=== PATIENT | female | born 1960 | race Caucasian/White ===

== ENCOUNTER → 2023-10-18 13:31 | Outpatient (REF) | payer MEDICARE, OTHER, SELFPAY | LOC: HWRAD 13:31 | PROVIDERS: ATTENDING PHYSICIAN Internal Medicine; REFERRING PHYSICIAN Internal Medicine Rheumatology | DX: M85.89 Other specified disorders of bone density and structure, multiple sites (principal); S92.355K Nondisplaced fracture of fifth metatarsal bone, left foot, subsequent encounter for fracture with nonunion; Z79.52 Long term (current) use of systemic steroids | CPT/HCPCS: 77080 ==

== ENCOUNTER 2024-06-06 06:21 | Day surgery (SDC) | payer MEDICARE, OTHER, SELFPAY ==
[2024-06-06] VITALS (7 sets, daily range): BP systolic 16–124; BP diastolic 54–63; BMI 31.2
[2024-06-06] MEDS: CELEBREX 200 MG PO (14:26)
[2024-06-06] MEDS: TYLENOL 1000 MG PO (14:26)
[2024-06-06 14:33] LABS: Hemoglobin 11.9 g/dL (12.0-16.0)
[2024-06-06] MEDS: NORMOSOL-R/PLASMALYTE-A 1000 IV (14:34)
[2024-06-06 15:02] LABS: Blood Urea Nitrogen 15 mg/dl (7-17)
[2024-06-06 15:02] LABS: Estimated Creatinine Clearance 78 ml/min; Glucose 85 mg/dl (70-99)
--- NOTE | 2024-06-06 15:03 | PTCARENOTE ---
Dr. Torres changed Vancomycin to Ancef. Dr. Albrecht notified via tiger text. Will monitor patient.
== END 2024-06-06 18:20 | disposition home or self-care (01) ==
LOC: SDS 06:21
PROVIDERS: ATTENDING PHYSICIAN Student in an Organized Health Care Education/Training Program
DX: S92.352K Displaced fracture of fifth metatarsal bone, left foot, subsequent encounter for fracture with nonunion (principal); S92.512K Displaced fracture of proximal phalanx of left lesser toe(s), subsequent encounter for fracture with nonunion; X58.XXXD Exposure to other specified factors, subsequent encounter; M20.42 Other hammer toe(s) (acquired), left foot
CPT/HCPCS: 28322; 28285; 26546; 82565; 82947; 84520; 85018; 93005; C1713; C1776

== ENCOUNTER → 2024-08-23 14:52 | Outpatient (REF) | payer MEDICARE, OTHER, SELFPAY | LOC: HWRAD 14:52 | PROVIDERS: ATTENDING PHYSICIAN Physician Assistant | DX: R05.1 Acute cough (principal); Z95.2 Presence of prosthetic heart valve; I27.20 Pulmonary hypertension, unspecified | CPT/HCPCS: 71046 ==

== ENCOUNTER → 2024-09-19 15:03 | Outpatient (REF) | payer MEDICARE, OTHER, SELFPAY | LOC: HWRAD 15:03 | PROVIDERS: ATTENDING PHYSICIAN Physician Assistant; REFERRING PHYSICIAN Internal Medicine Pulmonary Disease | DX: J18.9 Pneumonia, unspecified organism (principal) | CPT/HCPCS: 71046 ==

== ENCOUNTER → 2024-12-20 14:29 | Outpatient (REF) | payer MEDICARE, OTHER, SELFPAY | LOC: HWRAD 14:29 | PROVIDERS: ATTENDING PHYSICIAN Internal Medicine Rheumatology; FAMILY PHYSICIAN Internal Medicine | DX: R94.5 Abnormal results of liver function studies (principal); R10.11 Right upper quadrant pain | CPT/HCPCS: 76700 ==

== ENCOUNTER → 2024-12-21 12:32 | Outpatient (REF) | payer MEDICARE, OTHER, SELFPAY ==
[2024-12-21 16:18] LABS: Hematocrit 34.1 % (37.0-47.0); Hemoglobin 11.1 g/dL (12.0-16.0); Mean Corp Hgb Conc. 32.6 g/dL (33.0-37.0); Mean Corpuscular Volume 95.8 fL (81.0-99.0); Nucleated Red Blood Cells % 0 %; Platelet Count 378 10^3/uL (130-400); Red Cell Dist. Width 17.0 % (11.5-14.5)
[2024-12-21 16:37] LABS: ALT (SGPT) 28 U/L (0-35); AST (SGOT) 44 U/L (14-36); Albumin 4.1 g/dl (3.5-5.0); Alkaline Phosphatase 59 U/L (38-126); Blood Urea Nitrogen 22 mg/dl (7-17); Calcium 9.5 mg/dl (8.4-10.2); Carbon Dioxide 30 mmol/L (22-30); Chloride 106 mmol/L (98-107); Glucose 74 mg/dl (70-99); Iron 56 ug/dl (37-170); Potassium 4.4 mmol/L (3.5-5.1); Sodium 140 mmol/L (135-145); Total Protein 6.9 g/dl (6.3-8.2); eGFR > 60.00
[2024-12-21 16:47] LABS: Total Iron Binding Capacity 319 ug/dl (265-497)
[2024-12-21 16:56] LABS: TSH 1.82 uIU/ml (0.47-4.68)
[2024-12-21 17:00] LABS: Ferritin 17.7 ng/ml (11.1-264.0)
== END ==
LOC: HWLAB 12:32
PROVIDERS: ATTENDING PHYSICIAN Internal Medicine Rheumatology; FAMILY PHYSICIAN Internal Medicine
DX: M35.00 Sjogren syndrome, unspecified (principal); D83.9 Common variable immunodeficiency, unspecified; R53.82 Chronic fatigue, unspecified; R94.5 Abnormal results of liver function studies; Z79.69 Long term (current) use of other immunomodulators and immunosuppressants; D50.0 Iron deficiency anemia secondary to blood loss (chronic)
CPT/HCPCS: 36415; 80053; 82728; 83540; 83550; 84439; 84443; 85025; 85652; 86015; 86038; 86376; 86381; 86618

== ENCOUNTER → 2025-01-04 13:35 | Outpatient (REF) | payer MEDICARE, OTHER, SELFPAY ==
[2025-01-04 15:25] LABS: Blood Urea Nitrogen 19 mg/dl (7-17); Calcium 9.1 mg/dl (8.4-10.2); Carbon Dioxide 29 mmol/L (22-30); Chloride 104 mmol/L (98-107); Glucose 81 mg/dl (70-99); Potassium 4.6 mmol/L (3.5-5.1); Sodium 138 mmol/L (135-145); eGFR > 60.00
== END ==
LOC: HWRCS 13:35
PROVIDERS: ATTENDING PHYSICIAN Internal Medicine
DX: Z95.2 Presence of prosthetic heart valve (principal); I27.20 Pulmonary hypertension, unspecified
CPT/HCPCS: 36415; 80048; 83880; 93306

== ENCOUNTER → 2025-01-24 13:38 | Outpatient (REF) | payer MEDICARE, OTHER, SELFPAY ==
[2025-01-24 16:26] LABS: Albumin 4.5 g/dl (3.5-5.0); Blood Urea Nitrogen 16 mg/dl (7-17); Calcium 9.3 mg/dl (8.4-10.2); Carbon Dioxide 30 mmol/L (22-30); Chloride 103 mmol/L (98-107); Glucose 84 mg/dl (70-99); Potassium 4.9 mmol/L (3.5-5.1); Sodium 139 mmol/L (135-145); eGFR > 60.00
== END ==
LOC: HWLAB 13:38
PROVIDERS: ATTENDING PHYSICIAN Internal Medicine Cardiovascular Disease; FAMILY PHYSICIAN Internal Medicine
DX: I10 Essential (primary) hypertension (principal)
CPT/HCPCS: 36415; 80069